=== PATIENT | male | born 1950 | race Caucasian/White ===

== ENCOUNTER 2017-11-09 01:17 | Day surgery (SDC) | payer MEDICARE ==
[~2017-11-09 01:17] MED LIST: ACET325 PO; ALBU3IS INH; AMLO5 PO; Allopurinol100 MG PO; FERR325 PO; GABA300 PO; GUAI600T33 PO; INSUASPI SC; INSULANI SC; LOPE2C PO; LORA.5 PO; MIRT30 PO; OMEP20ER PO; OXYC15ER PO; OXYC5 PO; PRED20 PO; PROM25 PO; Remeron PO; TOBRAMYCIN IV; Ventolin5 MG/1 ML IH; WARF1 PO; WARF2.5 PO
[2017-11-09 12:04] LABS: Magnesium, Blood 2.4 mg/dL (1.6-2.4); Potassium, Blood 3.5 mmol/L (3.5-5.5)
== END 2017-11-09 11:40 | disposition home or self-care (01) ==
LOC: ATC 01:17
PROVIDERS: Internal Medicine Nephrology
DX: E87.6 Hypokalemia (principal); E83.42 Hypomagnesemia
CPT/HCPCS: 83735; 84132; 96365; 96366; J3475

== ENCOUNTER 2018-01-07 00:24 | Day surgery (SDC) | payer MEDICARE | END 2018-01-07 11:28 | disposition home or self-care (01) | LOC: ATC 00:24 | DX: E83.42 Hypomagnesemia (principal); N18.4 Chronic kidney disease, stage 4 (severe); E87.6 Hypokalemia; I12.9 Hypertensive chronic kidney disease with stage 1 through stage 4 chronic kidney disease, or unspecified chronic kidney disease; D63.1 Anemia in chronic kidney disease; N25.81 Secondary hyperparathyroidism of renal origin; D50.9 Iron deficiency anemia, unspecified; M81.0 Age-related osteoporosis without current pathological fracture | CPT/HCPCS: 96365; 96366; J3475 ==